=== PATIENT | male | born 1965 | race Caucasian/White ===

== ENCOUNTER → 2020-07-27 | Outpatient (CLI) | payer OTHER | LOC: CAT 07:49 | PROVIDERS: ATTEND Family Medicine | DX: K11.6 Mucocele of salivary gland (principal); J32.9 Chronic sinusitis, unspecified ==

== ENCOUNTER → 2020-10-25 | Outpatient (CLI) | payer OTHER | LOC: LAB 12:14 | PROVIDERS: ATTEND Family Medicine | DX: R05 Cough (principal); Z20.822 Contact with and (suspected) exposure to COVID-19 ==